=== PATIENT | female | born 1950 | race Caucasian/White ===

== ENCOUNTER 2018-05-19 08:26 | Emergency (ER) | payer BC ==
[2018-05-19 09:52] VITALS: BP 149/71
--- NOTE | 2018-05-19 10:50 | ED ---
Skin Complaint - HPI Summary HPI Summary: 67 yr old female with the complaint of right ring finger redness after a yellow jacket sting five days ago. She has no pain, no fever, no chills. She does have redness and swelling dorsum of right ring finger. - History of Current Complaint Chief Complaint: UCSkin Time Seen by Provider: 05/19/18 10:35 Stated Complaint: RT HAND RING FINGER COMPLAINT Pain Intensity: 0 - Allergy/Home Medications Allergies/Adverse Reactions: Allergies Allergy/AdvReac Type Severity Reaction Status Date / Time Sulfa (Sulfonamide Allergy Severe full body Verified 05/19/18 09:54 Antibiotics) rash amoxicillin Allergy Rash Verified 05/19/18 09:54 tetanus vaccine Allergy fever, Uncoded 05/19/18 09:54 rash, swelling , vomitng Home Medications: Home Medications Ca, Mg, Zinc 1 tab PO DAILY 05/19/18 [History Confirmed 05/19/18] Cholecalciferol TAB* [Vitamin D TAB*] 1,000 unit PO DAILY 05/19/18 [History Confirmed 05/19/18] Niacin 50 mg PO DAILY 05/19/18 [History Confirmed 05/19/18] Barton-3 Fatty Acids [Barton-3] 1,000 mg PO DAILY 05/19/18 [History Confirmed ] Red Yeast Rice 600 mg PO DAILY 05/19/18 [History Confirmed 05/19/18] PMH/Surg Hx/FS Hx/Imm Hx Endocrine/Hematology History: Denies: Hx Diabetes, Hx Thyroid Disease Cardiovascular History: Denies: Hx Hypertension Respiratory History: Denies: Hx Asthma, Hx Chronic Obstructive Pulmonary Disease (COPD) GI History: Denies: Hx Ulcer - Surgical History Surgery Procedure, Year, and Place: TONSILECTOMY, APPENCDECTOMY, hysterectomy Infectious Disease History: No Infectious Disease History: Denies: Hx Hepatitis, Hx Human Immunodeficiency Virus (HIV), Traveled Outside the [place] in Last 30 Days - Family History Known Family History: Positive: Hypertension - Social History Alcohol Use: Occasionally Substance Use Type: Reports: None Smoking Status (MU): Never Smoked Tobacco Review of Systems Constitutional: Negative Positive: Other - rash with yelow jacket sting All Other Systems Reviewed And Are Negative: Yes Physical Exam Triage Information Reviewed: Yes Vital Signs On Initial Exam: Initial Vitals Temp Pulse Resp BP Pulse Ox 98.6 F 61 12 149/71 100 05/19/18 09:44 05/19/18 09:44 05/19/18 09:44 05/19/18 09:44 05/19/18 09:44 Vital Signs Reviewed: Yes Appearance: Positive: Well-Appearing, No Pain Distress Skin: Positive: Warm, Skin Color Reflects Adequate Perfusion Head/Face: Positive: Normal Head/Face Inspection Eyes: Positive: EOMI ENT: Positive: Normal ENT inspection Neck: Positive: Nontender Respiratory/Lung Sounds: Positive: Other - nomral effort and speaks full sentences Cardiovascular: Positive: Pulses are Symmetrical in both Upper and Lower Extremities - good pulses in right wrist and cap refill Musculoskeletal: Positive: Strength/ROM Intact, Other - right ring finger with red/puple coloration over the sting area and then mild STS over the dorsum of the PIP joint skin. Full range of motion across the joints of the ring finger and MP without pain or limit. No streaking up the arm. No lymphadenopathy. Neurological: Positive: Sensory/Motor Intact, Alert, Oriented to Person Place, Time, CN Intact II-III Psychiatric: Positive: Normal Diagnostics - Vital Signs Vital Signs Temp Pulse Resp BP Pulse Ox 05/19/18 09:44 98.6 F 61 12 149/71 100 - Laboratory Lab Statement: Any lab studies that have been ordered have been reviewed, and results considered in the medical decision making process. Course/Dx - Course Course Of Treatment: 67 yr old with cellulitis to the ring finger. Rx with Doxycycline - Diagnoses Provider Diagnoses: Cellulitis of finger, right, Bee sting Discharge - Sign-Out/Discharge Documenting (check all that apply): Patient Departure All imaging exams completed and their final reports reviewed: No Studies - Discharge Plan Condition: Good Disposition: HOME Prescriptions: DOXYcycline CAP(*) [DOXYcycline 100MG CAP(*)] 100 mg PO BID #20 cap Patient Education Materials: Insect Bite or Sting (ED), Cellulitis (DC), Hypertension (ED) Referrals: Alexis Moss MD [Primary Care Provider] - 2 Days - Billing Disposition and Condition Condition: GOOD Disposition: Home
== END 2018-05-19 10:50 | disposition home or self-care (01) ==
LOC: UCCORT 08:26
DX: L03.011 Cellulitis of right finger (principal); T63.441A Toxic effect of venom of bees, accidental (unintentional), initial encounter; Y92.9 Unspecified place or not applicable; Z88.1 Allergy status to other antibiotic agents; Z88.0 Allergy status to penicillin
CPT/HCPCS: 99212; G0463